=== PATIENT | female | born 1950 | race Two or more races ===

== ENCOUNTER 2023-12-19 12:15 | Inpatient (IN) | payer OTHER ==
[~2023-12-19] VITALS: Ht 152.4 cm; Wt 72.6 kg
[2023-12-19] MEDS ORDERED: AMLODIPINE-OLM1 EAC2 (13:44)
[2023-12-19] MEDS ORDERED: ZESTRIL2.5 MG (13:44)
[2023-12-19] MEDS ORDERED: ATORVASTATIN CA10 MG (13:45)
[2023-12-19] MEDS ORDERED: TIROSINT13 MCG (13:45)
[2023-12-19] MEDS ORDERED: LOPRESSOR25 MG (13:46)
[2023-12-19] MEDS ORDERED: DICYCLOMIN10 MG/5 M1 (13:46)
[2023-12-19] MEDS ORDERED: PEPCID AC10 MG (13:46)
[2023-12-19] MEDS ORDERED: CHLORTHALIDONE25 MG (13:46)
[2023-12-27] MEDS ORDERED: BUPIVACAINE HCL/MPF 0.5% 30ML VIAL ONE (14:04)
[2023-12-27] MEDS ORDERED: POVIDONE-IODINE 118 ML BOTT TOP ONE ×2 (14:05→15:45)
[2023-12-27] MEDS ORDERED: LIDOCAINE HCL 1%/EPINEPHRINE 20ML VIAL IJ ONE ×2 (14:05→15:45)
[2023-12-27] MEDS ORDERED: CEFTRIAXONE SODIUM 2,000 MG VIAL ONE (14:30)
[2023-12-27] MEDS ORDERED: SPIRONOLACTONE25 MG (14:46)
[2023-12-27] MEDS ORDERED: LEVOTHYROXINE88 MCG (14:46)
[2023-12-27] MEDS ORDERED: AMLODIPINE BESYL5 MG (14:47)
[2023-12-27] MEDS ORDERED: METOPROLOL SUCC50 MG (14:47)
[2023-12-27] MEDS ORDERED: SIMVASTATIN10 MG (14:47)
[2023-12-27] MEDS ORDERED: LISINOPRIL40 MG (14:49)
[2023-12-27] MEDS ORDERED: DICYCLOMINE HCL10 MG (14:50)
[2023-12-27] MEDS ORDERED: METRONIDAZOLE/SODIUM CHLORIDE 500 MG/100 ML PIGGYBACK IV ONE (15:04)
[2023-12-27] MEDS ORDERED: DEXTROSE 50 % IN WATER 0.5 G/ML VIAL IV PRN (15:30)
[2023-12-27] MEDS ORDERED: OxyCODONE HCL 5 MG TABLET (ROXICODONE) PO PRN (15:30)
[2023-12-27] MEDS ORDERED: 0.9 % SODIUM CHLORIDE 1,000 ML IV SCH (15:30)
[2023-12-27] MEDS ORDERED: ONDANSETRON HCL 2 MG/ML VIAL IV PRN (15:30)
[2023-12-27] MEDS ORDERED: MORPHINE SULFATE 4 MG/ML CARTRIDGE IV PRN (15:30)
[2023-12-27] MEDS ORDERED: BUPIVACAINE HCL 30 ML VIAL IJ ONE (15:45)
[2023-12-27] MEDS ORDERED: CEFTRIAXONE SODIUM 2,000 MG in 0.9 % SODIUM CHLORIDE 50 ML IV ONE (15:45)
[2023-12-27] MEDS ORDERED: METRONIDAZOLE/SODIUM CHLORIDE 200 ML IV ONE (15:45)
[2023-12-27] MEDS ORDERED: hydrALAZINE HCL 20 MG VIAL IV PRN (16:30)
[2023-12-27] MEDS ORDERED: POLYETHYLENE GLYCOL 3350 17 GM BLIST.PACK PO SCH (17:00)
[2023-12-27] MEDS ORDERED: GABAPENTIN 300 MG CAPSULE PO SCH (17:00)
[2023-12-27] MEDS ORDERED: HYOSCYAMINE SULFATE 0.125 MG TAB.SUBL SL SCH (17:00)
[2023-12-27] MEDS ORDERED: SUGAMMADEX SODIUM 200 MG/2 ML VIAL IV ONE ×2 (18:43→19:00)
[2023-12-27] MEDS ORDERED: ACETAMINOPHEN 500 MG GEL..CAP PO SCH (20:00)
[2023-12-27] MEDS ORDERED: FAMOTIDINE/PF 20 MG/2 ML VIAL IV PUSH SCH (21:00)
[2023-12-27 21:04] LABS: HEMATOCRIT 29.9 % (36.0-45.00); HEMOGLOBIN 10.1 g/dL (12.0-15.00); MEAN CELL VOLUME 88.2 fL (80.00-100.00); MEAN CORPUSCULAR HEMOGLOBIN 29.9 pg (27.00-32.0); MEAN CORPUSCULAR HGB CONC 33.9 g/dl (32.0-36.0); PLATELET COUNT 254 K/uL (150-450); RED BLOOD COUNT 3.39 M/uL (4.00-6.00); RED CELL DISTRIBUTION WIDTH 13.9 % (11.5-14.5)
[2023-12-27 21:20] LABS: ALBUMIN 2.9 gm/dL (3.4-5.0); CREATININE SERUM 2.11 mg/dL (0.55-1.02); GFR 22.96; MAGNESIUM 1.7 mg/dL (1.8-2.4); PHOSPHOROUS 4.3 mg/dL (2.5-4.9); POTASSIUM 4.4 mEq/L (3.5-5.1)
[2023-12-27] MEDS ORDERED: FAMOTIDINE/PF 20 MG/2 ML VIAL ONE (21:25)
[2023-12-28] MEDS ORDERED: ACETAMINOPHEN 500 MG GEL..CAP PO ONE (00:44)
[2023-12-28] MEDS ORDERED: GABAPENTIN 300 MG CAPSULE PO ONE (00:44)
[2023-12-28] MEDS ORDERED: LEVOTHYROXINE SODIUM 88 MCG TABLET PO SCH (06:00)
[2023-12-28 08:55] LABS: HEMATOCRIT 26.9 % (36.0-45.00); HEMOGLOBIN 9.3 g/dL (12.0-15.00); MEAN CORPUSCULAR HEMOGLOBIN 30.2 pg (27.00-32.0); MEAN CORPUSCULAR HGB CONC 34.7 g/dl (32.0-36.0); PLATELET COUNT 209 K/uL (150-450); RED BLOOD COUNT 3.09 M/uL (4.00-6.00); RED CELL DISTRIBUTION WIDTH 13.8 % (11.5-14.5)
[2023-12-28] MEDS ORDERED: METOPROLOL SUCCINATE 50 MG TAB.SR.24H PO SCH (09:00)
[2023-12-28] MEDS ORDERED: AMLODIPINE BESYLATE 5 MG TABLET PO SCH (09:00)
[2023-12-28] MEDS ORDERED: FAMOTIDINE/PF 20 MG/2 ML VIAL IV PUSH SCH (09:00)
[2023-12-28] MEDS ORDERED: LISINOPRIL 40 MG TABLET PO SCH (09:00)
[2023-12-28 09:28] LABS: ALBUMIN 2.6 gm/dL (3.4-5.0); CALCIUM 8.4 mg/dL (8.5-10.1); CREATININE SERUM 1.36 mg/dL (0.55-1.02); GFR 38.11; MAGNESIUM 1.5 mg/dL (1.8-2.4); PHOSPHOROUS 3.8 mg/dL (2.5-4.9); POTASSIUM 4.45 mEq/L (3.5-5.1)
[2023-12-28] MEDS ORDERED: ENOXAPARIN SODIUM 40 MG/0.4 ML SYRINGE SUBCUTANEO SCH (17:00)
[2023-12-28] MEDS ORDERED: ENOXAPARIN SODIUM 30 MG/0.3 ML SYRINGE SUBCUTANEO SCH (17:00)
[2023-12-29] MEDS ORDERED: ENOXAPARIN SODIUM 40 MG/0.4 ML SYRINGE SUBCUTANEO SCH (09:00)
[2023-12-29] MEDS ORDERED: ENOXAPARIN SODIUM 30 MG/0.3 ML SYRINGE SUBCUTANEO SCH (09:00)
[2023-12-29] MEDS ORDERED: PANTOPRAZOLE SODIUM 40 MG/VIAL VIAL IV STA (09:18)
[2023-12-29] MEDS ORDERED: PANTOPRAZOLE SODIUM 40 MG/VIAL VIAL IV SCH (09:30)
[2023-12-29 11:48] LABS: HEMATOCRIT 29.8 % (36.0-45.00); MEAN CORPUSCULAR HEMOGLOBIN 29.7 pg (27.00-32.0); MEAN CORPUSCULAR HGB CONC 33.7 g/dl (32.0-36.0); PLATELET COUNT 233 K/uL (150-450); RED BLOOD COUNT 3.38 M/uL (4.00-6.00); RED CELL DISTRIBUTION WIDTH 13.5 % (11.5-14.5)
[2023-12-29 17:32] LABS: HEMATOCRIT 28.8 % (36.0-45.00); HEMOGLOBIN 9.9 g/dL (12.0-15.00); MEAN CELL VOLUME 86.6 fL (80.00-100.00); MEAN CORPUSCULAR HEMOGLOBIN 29.7 pg (27.00-32.0); MEAN CORPUSCULAR HGB CONC 34.2 g/dl (32.0-36.0); PLATELET COUNT 238 K/uL (150-450); RED BLOOD COUNT 3.32 M/uL (4.00-6.00); RED CELL DISTRIBUTION WIDTH 13.9 % (11.5-14.5)
[2023-12-30 09:38] LABS: HEMATOCRIT 24.8 % (36.0-45.00); HEMOGLOBIN 8.6 g/dL (12.0-15.00); MEAN CELL VOLUME 87.6 fL (80.00-100.00); MEAN CORPUSCULAR HEMOGLOBIN 30.3 pg (27.00-32.0); MEAN CORPUSCULAR HGB CONC 34.6 g/dl (32.0-36.0); PLATELET COUNT 219 K/uL (150-450); RED BLOOD COUNT 2.83 M/uL (4.00-6.00); RED CELL DISTRIBUTION WIDTH 13.6 % (11.5-14.5)
[2023-12-30 09:58] LABS: MAGNESIUM 1.8 mg/dL (1.8-2.4); PHOSPHOROUS 2.7 mg/dL (2.5-4.9)
[2023-12-30 10:36] LABS: CALCIUM 8.2 mg/dL (8.5-10.1); CREATININE SERUM 0.84 mg/dL (0.55-1.02); GFR 66.46; POTASSIUM 3.93 mEq/L (3.5-5.1)
[2023-12-30] MEDS ORDERED: AMINO ACIDS 4.25 %/DEXTROSE 5% 1,000 ML PERIFERAL SCH (17:00)
[2023-12-30] MEDS ORDERED: CAL PERIFERAL SCH (17:00)
[2023-12-30] MEDS ORDERED: LYTES PERIFERAL SCH (17:00)
[2023-12-30] MEDS ORDERED: DEX PERIFERAL SCH (17:00)
[2023-12-30] MEDS ORDERED: [UNRECOGNIZED DRUG - OTHER] PERIFERAL SCH (17:00)
[2023-12-31] MEDS ORDERED: AMINO ACIDS 4.25 %/DEXTROSE 5% 1,000 ML PERIFERAL SCH ×2 (06:25)
[2023-12-31] MEDS ORDERED: AMINO ACIDS 4.25 %/DEXTROSE 5% 2,000 ML PERIFERAL SCH (09:36)
[2023-12-31 12:11] LABS: HEMATOCRIT 31.3 % (36.0-45.00); HEMOGLOBIN 10.8 g/dL (12.0-15.00); MEAN CELL VOLUME 86.5 fL (80.00-100.00); MEAN CORPUSCULAR HEMOGLOBIN 29.8 pg (27.00-32.0); MEAN CORPUSCULAR HGB CONC 34.5 g/dl (32.0-36.0); PLATELET COUNT 245 K/uL (150-450); RED BLOOD COUNT 3.62 M/uL (4.00-6.00); RED CELL DISTRIBUTION WIDTH 14.1 % (11.5-14.5)
[2023-12-31 14:45] LABS: CALCIUM 8.6 mg/dL (8.5-10.1); CREATININE SERUM 0.63 mg/dL (0.55-1.02); GFR 92.63; POTASSIUM 3.84 mEq/L (3.5-5.1)
[2024-01-01 07:51] LABS: HEMATOCRIT 27.7 % (36.0-45.00); HEMOGLOBIN 9.7 g/dL (12.0-15.00); MEAN CELL VOLUME 86.1 fL (80.00-100.00); MEAN CORPUSCULAR HGB CONC 34.9 g/dl (32.0-36.0); PLATELET COUNT 238 K/uL (150-450); RED BLOOD COUNT 3.22 M/uL (4.00-6.00); RED CELL DISTRIBUTION WIDTH 13.9 % (11.5-14.5)
[2024-01-01] MEDS ORDERED: SOD FERRIC GLUC COMPLX/SUCROSE 62.5 MG in 0.9 % SODIUM CHLORIDE 50 ML IV SCH (12:00)
[2024-01-02] MEDS ORDERED: HYOSCYAMINE0.125 M1 SL ×2 (07:32)
[2024-01-02] MEDS ORDERED: PEPCID AC20 MG PO ×2 (07:32)
[2024-01-02] MEDS ORDERED: INTEGRA F CAPS1 EACH PO ×2 (07:32)
[2024-01-02] MEDS ORDERED: TRAM1TAB98 PO ×2 (07:33)
== END 2024-01-02 14:52 | disposition home or self-care (01) | DRG 330 ==
LOC: SURH 12-27 09:42 → O/R 12-27 09:42 → SURH 12-27 12:15
PROVIDERS: Internal Medicine; ADMIT Surgery; ATTEND Surgery
PROC: 0DTP4ZZ Resection of Rectum, Percutaneous Endoscopic Approach (ICD-10-PCS; 2023-12-27)
PROC: 0DBQ4ZZ Excision of Anus, Percutaneous Endoscopic Approach (ICD-10-PCS; 2023-12-27)
PROC: 07BC4ZZ Excision of Pelvis Lymphatic, Percutaneous Endoscopic Approach (ICD-10-PCS; 2023-12-27)
PROC: 0D1E4Z4 Bypass Large Intestine to Cutaneous, Percutaneous Endoscopic Approach (ICD-10-PCS; 2023-12-27)
PROC: 0DTN4ZZ Resection of Sigmoid Colon, Percutaneous Endoscopic Approach (ICD-10-PCS; principal; 2023-12-27 14:15)
PROC: 0D9670Z Drainage of Stomach with Drainage Device, Via Natural or Artificial Opening (ICD-10-PCS; 2023-12-29)
PROC: 30233N1 Transfusion of Nonautologous Red Blood Cells into Peripheral Vein, Percutaneous Approach (ICD-10-PCS; 2023-12-30)
PROC: 0DP0XUZ Removal of Feeding Device from Upper Intestinal Tract, External Approach (ICD-10-PCS; 2023-12-31)
DX: C20 Malignant neoplasm of rectum (principal); K92.0 Hematemesis; D12.8 Benign neoplasm of rectum; R59.0 Localized enlarged lymph nodes; K66.0 Peritoneal adhesions (postprocedural) (postinfection); D64.89 Other specified anemias; R14.0 Abdominal distension (gaseous); R19.4 Change in bowel habit; I11.9 Hypertensive heart disease without heart failure; E03.9 Hypothyroidism, unspecified

== ENCOUNTER 2024-01-07 13:00 | Emergency (ER) | payer OTHER ==
[~2024-01-07] VITALS: Ht 152.4 cm; Wt 72.6 kg
[~2024-01-07 13:00] MED LIST: AMLODIPINE BESYL5 MG; AMLODIPINE-OLM1 EAC2; ATORVASTATIN CA10 MG; CHLORTHALIDONE25 MG; DICYCLOMIN10 MG/5 M1; DICYCLOMINE HCL10 MG; HYOSCYAMINE0.125 M1 SL; INTEGRA F CAPS1 EACH PO; LEVOTHYROXINE88 MCG; LISINOPRIL40 MG; LOPRESSOR25 MG; METOPROLOL SUCC50 MG; PEPCID AC10 MG; PEPCID AC20 MG PO; SIMVASTATIN10 MG; SPIRONOLACTONE25 MG; TIROSINT13 MCG; TRAM1TAB98 PO; ZESTRIL2.5 MG
== END 2024-01-07 14:38 | disposition home or self-care (01) ==
LOC: ER 13:01
DX: K94.00 Colostomy complication, unspecified (principal); I10 Essential (primary) hypertension; E11.9 Type 2 diabetes mellitus without complications